=== PATIENT | male | born 1965 | race Caucasian/White ===

== ENCOUNTER → 2024-09-24 | Outpatient (CLI) | payer MEDICARE, MEDICAID, SELFPAY ==
--- NOTE | 2024-09-24 16:03 | RAD_ITS ---
STUDY: X-RAY - LEFT SHOULDER REASON FOR EXAM: Male, 58 years old. Left shoulder pain. TECHNIQUE: 4 views of the left shoulder. COMPARISON: None. FINDINGS: There is glenohumeral arthrosis with osteophyte formation along the inferomedial margin of the humeral head. Normal acromioclavicular joint. Normal acromion. Intact humeral head and visualized proximal humerus. The soft tissue structures are unremarkable. There is no demonstrated fracture. Normal visualized pulmonary apex. RAD/Shoulder min 2 Views IMPRESSION: Glenohumeral arthrosis. No demonstrated fracture. Electronically Signed: Orlando Wood MD at 15:17 EST ,
--- NOTE | 2024-09-24 16:06 | RAD_ITS ---
STUDY: X-RAY - LEFT KNEE REASON FOR EXAM: Male, 58 years old. Pain. TECHNIQUE: 5 views of the left knee. COMPARISON: None. FINDINGS: Normal visualized distal femur. Normal visualized proximal tibia and fibula. Normal proximal tibiofibular articulation. There is no demonstrated fracture. Normal medial femorotibial compartment. Normal lateral femorotibial compartment. Normal patellofemoral articulation. There is no demonstrated joint effusion. The soft tissue structures are unremarkable. RAD/Knee 4 or More Views IMPRESSION: Normal x-ray examination of the left knee. Electronically Signed: Orlando Wood MD at 15:20 EST ,
== END | disposition home or self-care (01) ==
LOC: MTRAD 15:59
PROVIDERS: PCP Family Medicine; Referring Provider Family Medicine; Visit Provider Family Medicine
DX: M25.562 Pain in left knee (principal); M25.512 Pain in left shoulder
CPT/HCPCS: 73030; 73564

== ENCOUNTER 2024-11-20 08:00 | Outpatient (RCR) | payer MEDICARE, SELFPAY ==
--- NOTE | 2024-10-11 11:02 | HP.PTEVAL ---
Patient's Visit Information Visit Information Visit Information: DAVID BLEVINS is a 59 year old M referred to Physical Therapy by Dr. Mitesh Martinez MD with a diagnosis of L SHLD PAIN AND OA. Date of Evaluation: 10/11/24 Physical Therapist: Zeina Loya PT, Cert MDT Visit Plan Frequency: 2-3x /Week Duration: 4-6 Weeks Plan: L SHLD ROM, STRETCHING AND STRENGTHENING TO HELP MEET SET GOALS. US, CP AND MH NEEDED FOR PAIN AND INFLAMMATION CONTROL. MANUAL THERAPY AND JOINT MOBILIZATION NEEDED TO L SHLD. POSTURE AND ERGONOMIC TRAINING. 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 Disability: NO Present symptoms: L SHLD PAIN AND SNAPPING. DENIES NUMBESS AND TINGLING. DENIES NECK PAIN, Present since: ABOUT 6 MONTHS AGO Getting Better, Getting Worse or Staying the Same: GETTING BETTER Pain Scale: Worst - 4/10 Least - 0/10 Currently: 09/28 Commenced as a result of: LIFTING A WOODEN WALL WITH DAD WHO IS A [place] Symptoms at onset: HEARD AND FELT A POP IN THE L SHLD - THEN IT HURT A LITTLE BIT. FINISHED PUTTING THE WALL UP AND WORKED WITH HIS DAD THE REST OF THE DAY. Worse: REACHING ACROSS BODY, REACHING BEHIND BACK, REACHING UP. HAS NOT BEEN LIFTING, PUSHING OR PULLING. Better: NOT USING IT, RESTING IT, CORTISONE SHOT HELPED THE PAIN A LOT Disturbed sleep: NO Previous history/Previous treatment: UNREMARKABLE This episode: CORTISONE SHOT 10/08/[address] MARTINEZ Imaging: YES - ARTHRITIS, CALCIUM BUILD UP AND SPUR PER PATIENT REPORT. MRI RECOMMENDED PER PATIENT REPORT. PMH/Recent major surgery: L ACL TEAR - UNREPAIRED, LBP Objective Objective: Sitting Posture/Standing Posture: VERY SLOUCHED IN SITTING AND STANDING. FH, ROUNDED SHLD'S. Active Correction of posture: ABLE TO PARTIALLY CORRECT. DOES NOT MAINTAIN. Other Observations: INDEP GAIT AND TRANSFERS Sensory deficit: LEONEL UE LIGHT TOUCH SENSATION GROSSLY INTACT AND SYMMETRICAL ROM deficit: L SHLD 128 DEG ACTIVE FLEX, 97 DEG ABD, 41 DEG EXTENSION. SUPINE PROM L SHLD FLEXION 146 DEG, ER 67 DEG, IR 64 DEG (ROTATION MEASURED WITH 70 DEG ABD). PATIENT C/O PAIN WITH ROM TESTING ALL PLANES. R UE WFL. 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 Reflexes: LEONEL UE DTR'S 2+ Dural Signs: NEGATIVE LEONEL UE'S. Postural strength: POOR Palpation: L SUPRASPINATUS, DELTOID AND BICIPITAL GROOVE REGION TENDERNESS. INCREASED MUSCLE TONE LEONEL UPPER TRAP REGIONS L>R. Balance/Special Test Scores Quick DASH Score: 22.7250 Goals Goal 1:: DECREASE C/O L SHLD PAIN BY AT LEAST 75% TO EASE ADL AND WORK FUNCTION Goal Time Frame: 4-6 Weeks Goal 2:: INCREASE FUNCTIONAL ROM OF L UE TO EASE ADL AND WORK FUNCTION Goal Time Frame: 4-6 Weeks Goal 3:: INCREASE FUNCTIONAL STRENGTH OF L UE TO EASE ADL AND WORK FUNCTION Goal Time Frame: 4-6 Weeks Goal 4:: IMPROVE DASH SCORE BY AT LEAST 5 POINTS. Goal Time Frame: 4-6 Weeks Goal 5:: INDEP HEP Goal Time Frame: 4-6 Weeks Rehabilitation Potential Physical Therapy Diagnosis: L UE STIFFNESS AND WEAKNESS. Rehabilitation Potential: Good Anticipated Interventions Patient/Client Instruction: Educate patient on: Condition, Plan of Care and Risk Factors For the Purpose of:: To improve self management Therapeutic Exercise to Include: Strength training, Postural training, Flexibilty training, Neuromotor development, Passive ROM, Active ROM and Scapular Strength/Stabilization For the Purpose of:: To decrease pain, To increase ROM, To improve muscle performance and motor function, To increase tolerance to activity/condition/position, To improve ability of physical actions for home/community/work/leisure, To decrease soft tissue restriction, To increase flexibility/ROM and To improve self management Manual Therapy Techniques to Include: Trigger point massage, Mobilization, Passive ROM, Functional dry needling and Soft tissue mobilization For the Purpose of:: To decrease pain, To improve nutrient delivery to tissue, To decrease soft tissue restriction and To increase flexibility/ROM Cryotherapy (ice pack, ice massage): Yes Thermo therapy (hot pack): Yes Ultrasound (thermal/non thermal): Yes For the Purpose of:: To decrease pain, To decrease swelling/inflammation and To improve nutrient delivery to tissue Text: Thank you for the opportunity to evaluate your patient. For Medicare and Medicare HMO plans, please review the plan of care and approve it. It will need to be FAXED BACK to us at [phone] for Medicare purposes. For Medicare only, by signing this I certify the plan of care. Please let me know if there are questions or concerns regarding this plan of care. Physician Signature: Date:
--- NOTE | 2024-11-20 08:45 | HP.PTDCSUM ---
Discharge Summary D/C summary: It has been my pleasure to treat DAVID BLEVINS referred by Dr. Mitesh Montes MD, with the diagnosis of L SHLD PAIN AND OA for a total of 9 visit(s). Discharge Date: 11/20/24 Please see the following information for a summary of their discharge status. Subjective Subjective: PATIENT REPORTS HIS SHOULDER HAS BEEN DOING VERY GOOD EXCEPT ONE TIME 2 DAYS AGO HE FELT A POP. ONLY QUICK FLEETING PAIN WITH THE POP AND ONLY HAPPENED ONE TIME. STATES HE WAS REACHING TO PUT A TOWEL UP WHEN IT HAPPENED. STATES HE HAS EVEN BEEN HELPING HIS PARENTS MOVE SOME FURNITURE IN THE BASEMENT WITHOUT ANY PAIN OR PROBLEM. PATIENT CONTINUES TO REPORT BEING PARTIALLY COMPLIANT WITH HEP AT BEST AND REALIZES HE SHOULD BE MORE CONSISTENT WITH IT. Pain Left Shoulder: Pain Intensity (Out of 10): 0 Overall Improvement % Improvement: 98 Objective Objective/Function: UPON EXAM TODAY PATIENT HAS FULL AROM OF L SHLD ALL PLANES AND 5/5 L UE STRENGTH WITH MMT. HE DENIES PAIN WITH ALL TESTING TODAY. HE IS INDEP WITH A HEP AND APPROPRIATE FOR AND AGREEABLE TO DISCHARGE. Goals Goal 1:: DECREASE C/O L SHLD PAIN BY AT LEAST 75% TO EASE ADL AND WORK FUNCTION Goal Progress: Goal Met Goal 2:: INCREASE FUNCTIONAL ROM OF L UE TO EASE ADL AND WORK FUNCTION Goal Progress: Goal Met Goal 3:: INCREASE FUNCTIONAL STRENGTH OF L UE TO EASE ADL AND WORK FUNCTION Goal Progress: Goal Met Goal 4:: IMPROVE DASH SCORE BY AT LEAST 5 POINTS. Goal Progress: Goal Met Goal 5:: INDEP HEP Goal Progress: Goal Met Plan Plan: D/C D/C Information d/c sentence: If there are questions or concerns regarding this patient's physical therapy, please feel free to call me at [phone]. Thank you for the referral of this patient. Sincerely, Zeina Loya, PT, Cert MDT Balance/Gait/Functional tests Balance/Special Test Scores Quick DASH Score: 2.2725 Improvement % Improvement: 98
== END 2024-11-20 19:00 | disposition home or self-care (01) ==
LOC: PT 08:00
PROVIDERS: PCP Family Medicine; Referring Provider Orthopaedic Surgery Sports Medicine; Visit Provider Orthopaedic Surgery Sports Medicine
DX: M19.012 Primary osteoarthritis, left shoulder (principal); M25.512 Pain in left shoulder
CPT/HCPCS: 97110; 97162; 97530

== ENCOUNTER → 2025-01-01 | Outpatient (CLI) | payer MEDICARE, SELFPAY ==
[2025-01-01 10:27] LABS: Absolute Lymphocyte Count 1.93 X10^3/uL (0.83-4.51); Basophil# 0.06 X10^3/uL; Basophil% 0.7 % (0-1); Eosinophil# 0.22 X10^3/uL; Eosinophils% 2.5 % (0-5); Hematocrit 45.5 % (40-54); Hemoglobin 14.8 g/dL (13.0-16.5); Lymphocyte # 1.93 X10^3/ul (0.83-4.51); Lymphocyte % 21.9 % (19-41); Mean Corp Hgb Conc 32.5 g/dL (32-36); Mean Corpuscular Hgb 28.5 pg (27.0-32.0); Mean Corpuscular Volume 87.7 fL (80-94); Mean Platelet Vol. 9.7 fl (6.2-12.0); Monocyte# 0.54 X10^3/uL; Monocyte% 6.1 % (0-10); NRBC Flagged by Analyzer 0 % (0-5); Neutrophil # 6.01 X10^3/uL (2.7-7.7); Neutrophil % 68.2 % (47-70); Platelet Count 383 K/mm3 (150-450); RBC Distribution Width CV 14.4 % (11.6-14.6); RBC Distribution Width SD 46.4 fl (35.1-43.9); Red Blood Count 5.19 M/mm3 (4.6-6.2); White Blood Count 8.8 K/mm3 (4.4-11.0)
[2025-01-01 11:23] LABS: ALB/GLOB Ratio 1.1 RATIO (0.9-2.4); AST(SGOT) 21 U/L (<=37); Alanine Aminotransfer ALT/SGPT 15 U/L (<=46); Albumin, Serum 3.8 g/dL (3.5-5.0); Alkaline Phosphatase 76 U/L (40-129); Anion Gap 11 (5-15); BUN 12 mg/dL (4-19); BUN/Creat Ratio 10.7 RATIO (10-20); Calcium,Total 9.1 mg/dL (7.6-11.0); Carbon Dioxide 24.1 mmol/L (21.0-32.0); Chloride 104 mmol/L (98-108); Cholesterol 227 mg/dL (<=200); Creatinine, Serum 1.12 mg/dL (0.70-1.20); EST Glomerular Filtration Rate 77 (>60); Globulin 3.4 g/dL (2.2-4.2); Glucose 91 mg/dL (70-99); High Density Lipoprotein 43 mg/dL; Low Density Lipoprotein Calc. 161 mg/dL; PSA,Total - Annual Screen 0.63 ng/mL (0.02-4.00); Protein, Total 7.2 g/dL (5.9-8.4); Sodium Level 139 mmol/L (133-145); Total Bilirubin 0.37 mg/dL (0.00-1.30); Triglycerides 111 mg/dL; Very Low Density Lipoprotein 22 mg/dL (5-40); cholesterol:hdl ratio screen 5.23
== END | disposition home or self-care (01) ==
LOC: MTLAB 08:29
PROVIDERS: PCP Family Medicine; Referring Provider Family Medicine; Visit Provider Family Medicine
DX: Z00.00 Encounter for general adult medical examination without abnormal findings (principal); Z13.1 Encounter for screening for diabetes mellitus; Z13.6 Encounter for screening for cardiovascular disorders; Z12.5 Encounter for screening for malignant neoplasm of prostate; Z13.220 Encounter for screening for lipoid disorders; I10 Essential (primary) hypertension
CPT/HCPCS: 36415; 80053; 80061; 84153; 85025; G0103

== ENCOUNTER 2025-02-05 10:10 | Emergency (ER) | payer MEDICARE, SELFPAY ==
[2025-02-05 10:11] VITALS: BP 152/96; PULSE 57; RESP 16; TEMP 36.6; O2SAT 99; BMI 35.8
--- NOTE | 2025-02-05 10:50 | EDS_ITS ---
HPI HPI - GI History of Present Illness Chief Complaint: GI Bleed Informant: patient Narrative Narrative: Patient is a 59-year-old male with prior history of umbilical hernia repair and CTs had 2 colonoscopies in past have been normal. He is presenting today with rectal bleeding. Patient states yesterday he noticed there was a small amount of blood on his comforter. He went to the bathroom and had a bowel movement and there was dark red blood in the toilet. He noticed it at the bottom of the toilet. Denies seeing any clots. He was still able to see his stool. He had had a bowel movement this morning with the same bleeding. He came in for further evaluation. Notes he has some mild discomfort in his left lower quadrant. Denies any chest pain. Denies any urinary symptoms. Denies any lightheadedness or dizziness. Is on any blood thinners. No other complaints or concerns at this time. [facility] Medical History Strain of left hip Primary osteoarthritis, left shoulder Left shoulder pain Home Medications ?Medication ?Instructions ?Recorded ?Last Taken ?Type aripiprazole 10 mg tablet 10 mg PO BREAKFAST 02/11/17 Unknown History trazodone 100 mg tablet 100 mg PO QHS 02/11/1702/04 History fluoxetine 40 mg capsule 40 mg PO DAILY 02/05/25 Unkn own History ibuprofen 200 mg tablet (Addaprin) 200 mg PO DAILY PRN fever or pain 02/05/25 02/05/25 History tirzepatide 5 mg/0.5 mL 5 mg subcut QWEEK 02/05/25 0 02/01/25 History subcutaneous pen injector (Mounjaro) Allergy/AdvReac Type Severity Reaction Status Date / Time Sulfa (Sulfonamide Allergy Hives Verified 01/28/25 09:01 Antibiotics) Surgical History H/O hernia repair Social History household members: family Smoking Status: Never smoker alcohol intake: current alcohol intake frequency: holidays/special occasions only ROS ROS ED Constitutional Constitutional ED: Denies chills or fever(s) Respiratory/Chest Respiratory/Chest: Denies cough Gastrointestinal Gastrointestinal: Reports abdominal pain and other Details: Bright red blood per rectum ; Denies constipation, diarrhea, nausea or vomiting Musculoskeletal Musculoskeletal: Denies arthralgias or myalgias Integumentary Denies rash Neurologic Neurologic: Denies weakness Hematologic/Lymphatic Hematologic/Lymphatic: Denies easy bleeding or easy bruising EXAM Physical Exam Const Vital Signs: 02/05/25 10:11 02/05/25 12:32 Temperature 97.9 F Temperature Source Oral Pulse Rate 57 L Pulse Rate [Lying] 60 Pulse Rate [Sitting (for 1 minute prior to obtaining)] 71 Pulse Rate [Standing (for 1 minute prior to obtaining)] 65 Respiratory Rate 16 Blood Pressure 152/96 H Blood Pressure [Lying] 162/70 H Blood Pressure [Sitting (for 1 minute prior to obtaining)] 169/95 H Blood Pressure [Standing (for 1 minute prior to obtaining)] 170/91 H Blood Pressure Mean 114 Blood Pressure Mean [Lying] 100 Blood Pressure Mean [Sitting (for 1 minute prior to obtaining)] 119 Blood Pressure Mean [Standing (for 1 minute prior to obtaining)] 117 Pulse Ox 99 Oxygen Delivery Method Room Air Positive well nourished and well developed General Appearance ED: well developed and NAD; Negative for pallor HEENT Reports moist mucous membranes Eyes PERRL General Eye ED: Negative for pale conjunctiva Neck supple Resp normal respiratory effort and clear to auscultation bilaterally Cardio regular rate and regular rhythm GI non-tender and non-distended GI Narrative: Chaperoned rectal exam performed. Patient has thrombosed hemorrhoid present on the left bottocks approximately 3 cm away from the rectum with a clot in place. There are signs of recent bleeding but no active bleeding. There is dark red blood in his perirectal area and on his depends. Rectal exam is nontender and there is brown stool. Auscultation: normoactive bowel sounds Palpation: soft; Negative for tender or guarding Extremity full ROM Neuro moves all extremities Sensorium / Orientation: alert Motor Exam: Negative for general weakness Psych mental status grossly normal and thought process normal Skin no wounds General Skin Exam: Negative for jaundice or pallor MDM MDM MDM Narrative Medical decision making narrative: Patient is evaluated for BRBPR. He is well-appearing. On exam he has a thrombosed external hemorrhoid but no signs of active bleeding. There is dark red blood around the area suspect has been bleeding recently. Is nontender. Will check basic labs. If normal can follow-up with GI. Hemoglobin is normal. Mildly downtrending from a month ago. Will obtain orthostatic vital signs. BUN mildly elevated but symptoms are more consistent with a lower GI bleed which is not consistent with his acute presentation. Orthostatics are normal. Areas reevaluated 1 more time with no signs of any further bleeding. He is well-appearing. Will give information on thrombosed hemorrhoids/external hemorrhoids and have him follow-up with general surgery. Also considered that this could be thrombosed seizure or another skin defect that is bleeding as it is a little bit further away from the anus and I would expect but either way I think and follow-up with general surgery. Counseled that if he has a bleeding that does not stop, starts to feel lightheaded or has further concerns he should return to the emergency room for repeat check. Lab Data Attestation: I reviewed the patient's lab results. Labs: Laboratory Results - last 24 hr 02/05/25 02/05/25 11:10 11:30 WBC 8.3 RBC 4.64 Hgb 13.4 Hct 41.1 MCV 88.6 MCH 28.9 MCHC 32.6 RDW Std Deviation 47.9 H RDW Coeff of Kaela 14.9 H Plt Count 334 MPV 9.5 Immature Gran % (Auto) 0.400 Neut % (Auto) 63.5 Lymph % (Auto) 25.2 Hanson % (Auto) 8.0 Eos % (Auto) 2.3 Baso % (Auto) 0.6 Absolute Neuts (auto) 5.3 Absolute Lymphs (auto) 2.10 Nucleated RBC % 0 Sodium 140 Potassium 4.8 Chloride 105 Carbon Dioxide 27.3 Anion Gap 7 BUN 23 H Creatinine 1.20 Estim Creat Clear Calc 68.02 Est GFR (MDRD) Non-Af 71 BUN/Creatinine Ratio 19.1 Glucose 92 Calcium 8.9 Total Bilirubin 0.27 AST 29 ALT 15 Alkaline Phosphatase 74 Total Protein 6.7 Albumin 3.7 Globulin 3.0 Albumin/Globulin Ratio 1.2 Urine Color Yellow Urine Clarity Clear Urine pH 7.0 Ur Specific Tendoy 1.010 Urine Protein 15 H Urine Glucose (UA) Normal Urine Ketones Negative Urine Occult Blood 25 H Urine Nitrite Negative Urine Bilirubin Negative Urine Urobilinogen Normal Ur Leukocyte Esterase Negative Urine RBC 0-5 SEEN Urine WBC 0 SEEN Ur Squamous Epith Cells 0 SEEN Urine Bacteria 0 SEEN Urine Mucus 0 SEEN Discharge Plan Triage Chief Complaint: GI Bleed ED Provider: Leny Shultz Dx/Rx/DC Orders Clinical Impression: External hemorrhoid, thrombosed, PRB (rectal bleeding) Instructions: Thrombosed Hemorrhoids Prescriptions: No Action trazodone 100 MG tablet 100 mg PO QHS aripiprazole 10 MG tablet 10 mg PO BREAKFAST Patient Comments: PT TAKES AT BEDTIME fluoxetine 40 mg capsule 40 mg PO DAILY Patient Comments: PT TAKES AT BEDTIME ibuprofen [Addaprin] 200 mg tablet 200 mg PO DAILY PRN (Reason: fever or pain) Mounjaro 5 mg/0.5 mL pen injector 5 mg subcut QWEEK Rx Instructions: TAKE ON TUESDAY Primary Care Provider: Kana Burton Referrals: Kana Burton MD [Primary Care Provider] - Gumaro Ramey MD [Med Staff - Active Staff] - Activity Restrictions/Additional Instructions: You have a small clot near your rectum that that I suspect was a hemorrhoid that started bleeding. You might have some slight further bleeding but if you have brisk bleeding or bleeding that does not stop with direct pressure to your rectal area please return to the emergency room. Otherwise please call general surgery for follow-up. Let them know that the ER was concerned that you have a thrombosed external hemorrhoid that was bleeding. Print Language: Spanish Disposition Disposition: Home, Self Care
[2025-02-05 11:24] LABS: Absolute Neutrophil Count 5.3 X10^3/uL (2.0-7.7); Basophil# 0.05 X10^3/uL; Basophil% 0.6 % (0-1); Eosinophil# 0.19 X10^3/uL; Eosinophils% 2.3 % (0-5); Hematocrit 41.1 % (40-54); Hemoglobin 13.4 g/dL (13.0-16.5); Lymphocyte % 25.2 % (19-41); Mean Corp Hgb Conc 32.6 g/dL (32-36); Mean Corpuscular Hgb 28.9 pg (27.0-32.0); Mean Corpuscular Volume 88.6 fL (80-94); Mean Platelet Vol. 9.5 fl (6.2-12.0); Monocyte# 0.67 X10^3/uL; NRBC Flagged by Analyzer 0 % (0-5); Neutrophil # 5.29 X10^3/uL (2.7-7.7); Neutrophil % 63.5 % (47-70); Platelet Count 334 K/mm3 (150-450); RBC Distribution Width CV 14.9 % (11.6-14.6); RBC Distribution Width SD 47.9 fl (35.1-43.9); Red Blood Count 4.64 M/mm3 (4.6-6.2); White Blood Count 8.3 K/mm3 (4.4-11.0)
[2025-02-05 11:34] LABS: Bacteria 0 SEEN /hpf (None Seen); Mucous, Urine 0 SEEN /hpf (<or=2+); Squamous Epithelial Cells - UA 0 SEEN /hpf (0-5); White Blood Cells 0 SEEN /hpf (0-5)
[2025-02-05 11:35] LABS: Color, Urine Yellow (Yellow); Glucose, Dipstick Normal (Normal); Ketone-Dipstick Negative (Negative); Leukocyte Esterase-Dipstick Negative /ul (Negative); Nitrite-Dipstick Negative (Negative); Occult Blood-Urine 25 /ul (Negative); Protein-Dipstick 15 mg/dl (Negative); Urine Bilirubin Dipstick Negative (Negative); Urine Clarity Clear (Clear); Urine Urobilinogen Normal (Normal)
[2025-02-05 11:42] LABS: Red Blood Cells-Urine 0-5 SEEN /hpf (0-5)
[2025-02-05 11:45] LABS: ALB/GLOB Ratio 1.2 RATIO (0.9-2.4); AST(SGOT) 29 U/L (<=37); Alanine Aminotransfer ALT/SGPT 15 U/L (<=46); Albumin, Serum 3.7 g/dL (3.5-5.0); Alkaline Phosphatase 74 U/L (40-129); Anion Gap 7 (5-15); BUN 23 mg/dL (4-19); BUN/Creat Ratio 19.1 RATIO (10-20); Calcium,Total 8.9 mg/dL (7.6-11.0); Carbon Dioxide 27.3 mmol/L (21.0-32.0); Chloride 105 mmol/L (98-108); EST Glomerular Filtration Rate 71 (>60); Estimated Creatinine Clearance 68.02 ml/min (50-250); Glucose 92 mg/dL (70-99); Potassium 4.8 mmol/L (3.3-5.1); Protein, Total 6.7 g/dL (5.9-8.4); Sodium Level 140 mmol/L (133-145); Total Bilirubin 0.27 mg/dL (0.00-1.30)
[2025-02-05 12:32] VITALS: BP 162/70; BP 169/95; BP 170/91; PULSE 60; PULSE 65; PULSE 71
== END 2025-02-05 13:15 | disposition home or self-care (01) ==
PROVIDERS: Emergency Provider Emergency Medicine; PCP Family Medicine; Visit Provider Emergency Medicine
DX: K64.5 Perianal venous thrombosis (principal)
CPT/HCPCS: 80053; 81001; 85025; 99284; A4216

== ENCOUNTER 2025-02-06 07:52 | Emergency (ER) | payer MEDICARE, SELFPAY ==
[2025-02-06 07:53] VITALS: BP 175/89; PULSE 66; RESP 19; TEMP 36.7; O2SAT 98; BMI 35.4
--- NOTE | 2025-02-06 07:58 | EDS_ITS ---
HPI History of Present Illness Chief Complaint: Other, Pain/Inj PFSH PFSH Medical History Strain of left hip Primary osteoarthritis, left shoulder Left shoulder pain Home Medications ?Medication ?Instructions ?Recorded ?Last Taken ?Type aripiprazole 10 mg tablet 10 mg PO BREAKFAST 02/11/17 Unknown History trazodone 100 mg tablet 100 mg PO QHS 02/11/1702/04 History fluoxetine 40 mg capsule 40 mg PO DAILY 02/05/25 Unkn own History ibuprofen 200 mg tablet (Addaprin) 200 mg PO DAILY PRN fever or pain 02/05/25 02/05/25 History tirzepatide 5 mg/0.5 mL 5 mg subcut QWEEK 02/05/25 0 02/01/25 History subcutaneous pen injector (Beth) hydrocortisone 2.5 % topical cream 1 applic [place] DAILY P RN hemorrhoids 02/06/25 Unknown Rx with perineal applicator #30 grams (Anusol-HC) lidocaine HCl 2 % mucosal jelly 1 applic topical BID P RN pain #30 02/06/25 Unknown Rx mL Allergy/AdvReac Type Severity Reaction Status Date / Time Sulfa (Sulfonamide Allergy Hives Verified 02/06/25 07:53 Antibiotics) Surgical History H/O hernia repair Social History household members: family Smoking Status: Never smoker alcohol intake: current alcohol intake frequency: holidays/special occasions only EXAM Physical Exam Const Vital Signs: 02/06/25 07:52 02/06/25 07:53 Temperature 98.1 F Temperature Source Oral Pulse Rate 66 Respiratory Rate 19 H Respiratory Effort Normal Non-Labored Respiratory Pattern Normal Blood Pressure 175/89 H Blood Pressure Mean 117 Pulse Ox 98 Oxygen Delivery Method Room Air MDM MDM MDM Narrative Medical decision making narrative: HISTORY OF PRESENT ILLNESS: Chief complaint: Bleeding hemorrhoid 59 -year-old male history of hemorrhoids presents with rectal bleeding. He notes he was told, it can be continued bleeding. He noticed some blood while wiping this morning which prompted his visit. Notes some pain along the rectal area but otherwise no other new symptoms. The patient denies use of blood thinners. Denies chest pain, shortness of breath, syncope, bleeding to multiple garments 1 hour REVIEW OF SYSTEMS: Pertinent positives: Rectal bleeding Pertinent negatives: Lightheadedness, dizziness, fatigue, syncope, shortness of breath PHYSICAL EXAM: Nursing triage notes reviewed, Vital signs reviewed Constitutional: please see mdm HENT: MMM Eyes: Pupils equal round and reactive to light, Extraocular muscles intact Neck: No stridor, no JVD, full neck ROM Lungs: Clear to auscultation, No wheezing or rales. No increased work of breathing, no conversational dyspnea, no accessory muscle use, no nasal flaring. No respiratory distress noted Heart: Regular rate and rhythm, No murmurs, No rubs and No gallops, 2+ distal pulses (radial, femoral, posterior tibial) in all extremities Abdomen: Soft, there is no tenderness, rigidity, rebound or guarding, no obvious peritoneal signs, no palpable pulsatile abdominal masses, no auscultated abdominal bruit : No CVAT rectal: Performed ultrasonic cleaner Janelle MARTIN Present showed thrombosed nonbleeding hemorrhoid. Showed only streaking pink in the patient's undergarments. Extremities: No edema Neuro: No new focal neurological deficits, cranial nerves II through XII intact, 5/5 strength in all present extremities. Intact sensation to light touch in all present extremities, 2+ reflexes bilateral patella tendons. Skin: No rash or lesions noted MEDICAL DECISION MAKING: Chief Complaint: please see HPI External records reviewed: Seen yesterday for similar problem. Labs reviewed from yesterday. Showed hemoglobin 13.4. Factors affecting care: external hemorrhoids Social determinants of health: none History obtained from others: none Consults: none [facility] Narrative: The patient was hemodynamically stable, afebrile and nontoxic-appearing. Exam without significant signs of bleeding. Vitals are stable. Prescribed Anusol and topical lidocaine. Gave strict return precautions and prompt follow-up instructions with general surgery for possible hemorrhoidectomy. The patient and/or family, caregivers express understanding. The patient and/or family, caregivers agrees with the plan. Shared decision making: I will have a discussion with the patient and or visitors regarding risk/benefits of further testing or admission. They will be made aware of of the risk/benefits inherent in this decision they will be given the opportunity to voice understanding. Total critical care time today provided was at least 0 minutes. This excludes separately billable procedures. Critical care time (if documented) is secondary to the patient having high probability of clinically significant/life threatening deterioration in the patient's condition which required my urgent intervention. Impression: 1. Thrombosed hemorrhoid 2. History of hemorrhoids Dispo: Discharge This note was generated with [employer] dictation software. It may contain incorrect words, spelling, and punctuation that were not noted in review of the chart prior to signing. Discharge Plan Triage Chief Complaint: Other, Pain/Inj ED Provider: Rick Huston Dx/Rx/DC Orders Clinical Impression: Hemorrhoid Instructions: ED Hemorrhoids Prescriptions: New hydrocortisone [Anusol-HC] 2.5 % cream with perineal applicator 1 applic [place] DAILY PRN (Reason: hemorrhoids) Qty: 30 0RF lidocaine HCl 2 % jelly 1 applic topical BID PRN (Reason: pain) Qty: 30 0RF No Action trazodone 100 MG tablet 100 mg PO QHS aripiprazole 10 MG tablet 10 mg PO BREAKFAST Patient Comments: PT TAKES AT BEDTIME fluoxetine 40 mg capsule 40 mg PO DAILY Patient Comments: PT TAKES AT BEDTIME ibuprofen [Addaprin] 200 mg tablet 200 mg PO DAILY PRN (Reason: fever or pain) Mounjaro 5 mg/0.5 mL pen injector 5 mg subcut QWEEK Rx Instructions: TAKE ON TUESDAY Primary Care Provider: Kana Burton Referrals: Chintan Lezama MD [Med Staff - Active Staff] - Activity Restrictions/Additional Instructions: Thank you for trusting us with your care today! Please use topical creams as prescribed and as needed. Please take Tylenol (2 pills, 650 mg), ibuprofen (2 pills, 400 mg) every 6 hours as needed for pain and fever control. Please return to the emergency department if your symptoms change or worsen. Please follow with General Surgery for further outpatient evaluation and management. Print Language: Thai Disposition Disposition: Home, Self Care
== END 2025-02-06 08:28 | disposition home or self-care (01) ==
LOC: ED 08:24
PROVIDERS: Emergency Provider Emergency Medicine; PCP Family Medicine; Visit Provider Emergency Medicine
DX: K64.5 Perianal venous thrombosis (principal)
CPT/HCPCS: 99282

== ENCOUNTER → 2025-06-28 | Outpatient (CLI) | payer MEDICARE, SELFPAY ==
[2025-06-28 18:53] LABS: Amylase 55 U/L (28-100); Lipase 34 U/L (13-75)
[2025-06-28 18:55] LABS: Microalbumin,Random Urine 26.5 mg/L (<20 mg/L)
== END | disposition home or self-care (01) ==
LOC: MTLAB 16:42
PROVIDERS: PCP Family Medicine; Referring Provider Family Medicine; Visit Provider Family Medicine
DX: E11.9 Type 2 diabetes mellitus without complications (principal); Z80.0 Family history of malignant neoplasm of digestive organs
CPT/HCPCS: 36415; 82043; 82150; 83690; 86301

== ENCOUNTER → 2025-07-29 | Outpatient (CLI) | payer MEDICARE, SELFPAY ==
--- NOTE | 2025-07-29 11:46 | RAD_ITS ---
PROCEDURE: LUMBAR SPINE 2 OR 3 VIEWS 07/29/2025 REASON FOR EXAM: LOW BACK PAIN TECHNIQUE: Procedure Code: RADSPLL Modality: DX Procedure: LUMBAR SPINE 2 OR 3 VIEWS FINDINGS: No evidence of acute fracture or dislocation. Mild levo scoliotic curvature. [id number] degenerative changes of the lumbar spine. Vertebral body heights are maintained. RAD/Lumbar Spine 2 or 3 Views IMPRESSION: Spondylosis. Spondylolisthesis. Scoliotic curvature. Reading Location: [id number]
== END | disposition home or self-care (01) ==
LOC: MTRAD 11:46
PROVIDERS: PCP Family Medicine; Referring Provider Family Medicine; Visit Provider Family Medicine
DX: M54.50 Low back pain, unspecified (principal)
CPT/HCPCS: 72100

== ENCOUNTER 2025-08-05 13:54 | Outpatient (RCR) | payer MEDICARE, SELFPAY ==
--- NOTE | 2025-08-05 14:58 | HP.PTEVAL ---
Patient's Visit Information Visit Information Visit Information: DAVID BLEVINS is a 59 year old M referred to Physical Therapy by Kana Burton MD with a diagnosis of LBP. Date of Evaluation: 08/05/25 Physical Therapist: Chapo Mott, PT, ATC Visit Plan Frequency: 1x/Week Duration: 1 Week Plan: assess benefit of REIL HEP. Instruct pt on HEP of core stab ex's next visit Subjective Subjective: Pt reports he has had LBP for approximately 4 weeks. pt notes his pain had an insidious onset in nature. Pt reports he may have just twisted weird. Pt denies PMHx of LBP. Pt denies any LE radiculopathy at this time. Pt reports occasional sleep difficulty secondary to pain. Pt reports he has had recent xrays which revealed degenerative changes of the lumbar spine. 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 Pt reports prolonged standing and ambulation tend to increase his pain. Pt reports sitting down and taking muscle relaxers helps to decrease his pain. 2/10 pain while sitting here at rest, 8/10 pain at worst (when he has been sitting for a while and stands upright) Pain LBP: Pain Intensity (Out of 10): 2 Pain Intensity Range: 8 Objective Objective: Neuro: B LE sensation is WNL to light touch. MMT: B LE's are grossly 4/5 throughout when compared bilaterally ROM: Pt is moderately limited with lumbar spine extension and B SB. Repeated movements: ROSA 10x2 NE. RFIS 10x2 NE. Prone prop progression decreased pain. REIL 10x2 decreased pain. TU sec Balance/Special Test Scores Oswestry Low Back Score: 16 Goals Goal 1:: I with HEP Goal Time Frame: 1 Week Rehabilitation Potential Physical Therapy Diagnosis: Pt has LBP and limited lumbar spine ROM secondary to a lumbar spine disc derangement Rehabilitation Potential: Good Anticipated Interventions Patient/Client Instruction: Educate patient on: Condition and Plan of Care For the Purpose of:: To improve self management Therapeutic Exercise to Include: Strength training, Endurance training, Body mechanics, Postural training, Dynamic Lumbar Stabilization and My Exercises For the Purpose of:: To decrease pain, To increase ROM and To improve muscle performance and motor function Text: Thank you for the opportunity to evaluate your patient. For Medicare and Medicare HMO plans, please review the plan of care and approve it. It will need to be FAXED BACK to us at [phone] for Medicare purposes. For Medicare only, by signing this I certify the plan of care. Please let me know if there are questions or concerns regarding this plan of care. Physician Signature: Date:
--- NOTE | 2025-10-14 11:09 | HP.PT.NRP ---
Patient Information Patient Information: DAVID BLEVINS was seen in my office for initial evaluation on 08/05/25. The following Plan of Care was established for this patient: POC Established Initial Frequency: 1x/Week Initial Duration: 1 Week Anticipated Interventions Patient/Client Instruction: Educate patient on: Condition and Plan of Care For the Purpose of:: To improve self management Therapeutic Exercise to Include: Strength training, Endurance training, Body mechanics, Postural training, Dynamic Lumbar Stabilization and My Exercises For the Purpose of:: To decrease pain, To increase ROM and To improve muscle performance and motor function Last Seen Last Seen: This patient was last seen in our office . Pertinent comments regarding their Physical therapy will appear below: Pt has not returned in greater than 30 days and is discontinued at this time. At this point I will be discontinuing this patient from physical therapy. I would be happy to see this patient again in the future if found appropriate by the physician. Thank you! Chapo Mott, PT, ATC Balance/Gait/Functional tests Balance/Special Test Scores Oswestry Low Back Score: 16
== END 2025-08-05 19:00 | disposition home or self-care (01) ==
LOC: PT 13:54
PROVIDERS: PCP Family Medicine; Referring Provider Family Medicine; Visit Provider Family Medicine
DX: M51.26 Other intervertebral disc displacement, lumbar region (principal); M47.816 Spondylosis without myelopathy or radiculopathy, lumbar region
CPT/HCPCS: 97161

== ENCOUNTER → 2025-09-17 | Outpatient (CLI) | payer MEDICARE, SELFPAY ==
--- NOTE | 2025-09-17 09:21 | RAD_ITS ---
PROCEDURE: FOOT MIN 3 VIEWS 09/17/2025 REASON FOR EXAM: PAIN TECHNIQUE: Procedure Code: RADFO Modality: DX Procedure: FOOT MIN 3 VIEWS FINDINGS: No calcaneal spurring. No pes planus. No definite talonavicular joint arthrosis. No definite ankle effusion. No evidence of fracture, erosive or destructive process. No other abnormality. RAD/Foot min 3 Views IMPRESSION: Unremarkable. Reading Location: [facility]
== END | disposition home or self-care (01) ==
LOC: MTRAD 09:20
PROVIDERS: PCP Family Medicine; Referring Provider Family Medicine; Visit Provider Family Medicine
DX: M79.672 Pain in left foot (principal)
CPT/HCPCS: 73630